=== PATIENT | male | born 1965 | race Caucasian/White ===

== ENCOUNTER 2017-02-23 07:38 | Emergency (ER) | payer SELFPAY ==
[~2017-02-23] VITALS: Ht 170.2 cm; Wt 81.0 kg
[2017-02-23] MEDS ORDERED: ONDANSETRON HCL 4MG/2ML VIAL IV STA (07:50)
[2017-02-23] MEDS ORDERED: SODIUM CHLORIDE 0.9% 1,000 ML IV ONE (07:50)
[2017-02-23] MEDS ORDERED: MECLIZINE 25MG TABLET PO ONE (08:00)
[2017-02-23 08:06] LABS: BASOPHILS % 0.6 % (0.0-2.0); EOSINOPHILS % 1.9 % (0.0-5.0); HEMATOCRIT. 47.7 % (42.0-52.0); HEMOGLOBIN. 16.5 g/dL (14.0-18.0); LYMPHOCYTES % 34.9 % (20.0-50.0); MEAN CORPUSCULAR HEMOGLOBIN 31.1 pg (28.0-32.0); MEAN CORPUSCULAR VOLUME 89.9 fL (80.0-94.0); MEAN PLATELET VOLUME 7.8 fl (7.4-10.4); NEUTROPHILS % 55.6 % (40.0-76.0); PLATELET 105 x1000/uL (130-400); RED BLOOD CELL COUNT 5.31 mill/uL (4.7-6.1); RED CELL DISTRIBUTION WIDTH 13.6 % (11.6-14.6)
[2017-02-23 08:12] LABS: CHLORIDE 102 mEq/L (98-107)
[2017-02-23 08:17] LABS: CARBON DIOXIDE 28 mEq/L (21-32)
[2017-02-23 12:57] VITALS: BP 140/92
== END 2017-02-23 13:01 | disposition home or self-care (01) ==
LOC: ER 07:38
DX: R42 Dizziness and giddiness (principal); I10 Essential (primary) hypertension; E11.9 Type 2 diabetes mellitus without complications
CPT/HCPCS: 36415; 70450; 80053; 82962; 85025; 93005; 96361; 96374; 99285; J2405; J7030; Z7610; J8597